=== PATIENT | male | born 1960 | race Two or more races ===

== ENCOUNTER 2024-05-23 23:22 | Emergency (ER) | payer OTHER ==
[~2024-05-23] VITALS: Ht 190.5 cm; Wt 113.4 kg
[2024-05-24] MEDS ORDERED: TAMS0.4C PO (00:16)
[2024-05-24] MEDS ORDERED: TOPROL XL50 M1 PO (00:16)
[2024-05-24] MEDS ORDERED: ADULT LOW DOSE81 M1 PO (00:17)
[2024-05-24] MEDS ORDERED: TAMSULOSIN HCL 0.4 MG CAP PO STA (02:45)
[2024-05-24] MEDS ORDERED: TAMSULOSIN HCL 0.4 MG CAP PO ONE (02:48)
[2024-05-24 03:03] LABS: PH,URINE 5.5 (5.0-8.0); URINE APPEARANCE Clear; URINE BILIRRUBIN Negative (NEGATIVE); URINE BLOOD Large; URINE COLOR Yellow; URINE GLUCOSE Negative (NEGATIVE); URINE KETONE Trace (NEGATIVE); URINE LEUKOCYTE Negative; URINE NITRATE Negative; URINE PROTEIN 30 (NEGATIVE); URINE UROBILINOGEN 0.2 E.U./dl
[2024-05-24 03:05] LABS: HEMATOCRIT 41.4 % (39.0-48.0); HEMOGLOBIN 14.7 g/dL (13-16.00); MEAN CELL VOLUME 90.9 fL (80.0-100.00); MEAN CORPUSCULAR HEMOGLOBIN 32.2 pg (27.00-32.0); MEAN CORPUSCULAR HGB CONC 35.4 g/dl (32.0-36.0); PLATELET COUNT 206 K/uL (150-450); RED BLOOD COUNT 4.55 M/uL (4.00-6.00); RED CELL DISTRIBUTION WIDTH 13.2 % (11.5-14.5)
[2024-05-24 03:06] LABS: URINE BACTERIA 42.8 uL (0.0-1933); URINE RBC 904.7 uL (0.0-20.8); URINE WBC 8.8 uL (0.0-23.2)
[2024-05-24 03:20] LABS: URINE EPITHELIAL CELLS 0.6 uL (0.0-38.8)
[2024-05-24 03:27] LABS: CALCIUM 9.4 mg/dL (8.5-10.1); CREATININE SERUM 1.19 mg/dL (0.70-1.30); GFR 62.15; POTASSIUM 4.61 mEq/L (3.5-5.1)
== END 2024-05-24 05:49 | disposition home or self-care (01) ==
LOC: ER 23:22
DX: N40.1 Benign prostatic hyperplasia with lower urinary tract symptoms (principal); N13.8 Other obstructive and reflux uropathy; Z88.8 Allergy status to other drugs, medicaments and biological substances